=== PATIENT | female | born 1945 | race Asian ===

== ENCOUNTER 2020-10-15 14:57 | Emergency (ER) | payer MEDICARE, OTHER ==
[~2020-10-15] VITALS: Ht 160 cm; Wt 58.7 kg
[2020-10-15] MEDS ORDERED: CRES10TA PO (15:15)
[2020-10-15] MEDS ORDERED: LANTINJ4 SC (15:15)
[2020-10-15] MEDS ORDERED: NOVOINJ SC (15:15)
[2020-10-15] MEDS ORDERED: LISI-898 PO (15:15)
[2020-10-15] MEDS ORDERED: ISOVUE-370 76% 100ML VIAL As Ordered ONE (16:17)
--- NOTE | 2020-10-15 16:42 | REP ---
INDICATION: CVA. COMPARISON: No comparison chest x-ray TECHNIQUE: Way. FINDINGS: The lungs are symmetrically aerated. No definite infiltrate. Heart is mildly prominent in size. Pulmonary vasculature is cephalized. There are surgical clips in the right axillary soft tissues. The thoracic aorta is tortuous and calcific.. IMPRESSION: Mild cardiomegaly. Vascular cephalization. No evidence of pleural effusion or pulmonary edema. The. <Electronically signed by Aurelio Kahn > 10/15/20 [id number]
[2020-10-15 16:46] LABS: BASO % 0.3 % (0.0-1.0); EOS # 0.1 10^3/uL (0.0-0.5); EOS % 0.8 % (0.0-3.0); HEMATOCRIT 38.1 % (36.0-47.0); HEMOGLOBIN 12.4 g/dl (12.0-15.5); LYMPH # 1.9 10^3/uL (1.5-5.0); LYMPH % 29.6 % (24.0-44.0); MEAN CORPUSCULAR HEMOGLOBIN 29.5 pg (27.0-33.0); MEAN CORPUSCULAR HGB CONC 32.5 g/dl (32.0-36.5); MEAN CORPUSCULAR VOLUME 90.5 fl (80.0-96.0); MONO # 0.4 10^3/uL (0.0-0.8); MONO % 5.8 % (2.0-8.0); NEUTROPHILS # 4.1 10^3/uL (1.5-8.5); RED BLOOD COUNT 4.21 10^6/uL (4.00-5.40); WHITE BLOOD COUNT 6.5 10^3/uL (4.0-10.0)
[2020-10-15 16:58] LABS: INR 1.01; PROTHROMBIN TIME 13.5 SECONDS (12.5-14.3)
[2020-10-15 16:59] LABS: PARTIAL THROMBOPLASTIN TIME 40.5 SECONDS (24.2-38.5)
--- NOTE | 2020-10-15 17:01 | REP ---
INDICATION: eye vision deficit. COMPARISON: None. TECHNIQUE: Helical scanning is acquired. 5 mm axial images were reformatted. Coronal MPR images were generated. FINDINGS: Bone window settings demonstrate an intact bony calvarium. There is no evidence of skull fracture or incidental bony calvarial lesion. The visualized paranasal sinuses appear clear. No intraorbital abnormality is seen. On soft tissue window setting images; the lateral, third, and fourth ventricles are normal in size and position. Conroy-white differentiation pattern is normal above and below the tentorium. There are is no evidence of intracranial hemorrhage. No mass, edema, infarction, or midline shift is seen. No extra-axial fluid collection is appreciated. There is moderate vascular calcification at the skull base involving the distal internal carotid arteries. There is mild generalized volume loss. Mild small vessel changes are seen in the periventricular white matter of the right frontal lobe. There is punctate calcification in the basal ganglia on the right. IMPRESSION: Generalized volume loss and vascular calcification. Small vessel changes. No acute intracranial abnormality seen.. <Electronically signed by Aurelio Kahn > 10/15/20 [id number]
[2020-10-15 17:07] LABS: CK-MB VALUE MASS < 1.0 NG/ML (<3.6); CPK CREATINE PHOSPHOKINASE 73 U/L (26-192); MB/CK RELATIVE INDEX 1.37 (< OR =4); TROPONIN I < 0.02 NG/ML (< 0.10)
--- NOTE | 2020-10-15 17:07 | REP ---
INDICATION: CVA - Nursing interventions must not delay CT. COMPARISON: Comparison is made with today's CT brain study.. TECHNIQUE: CT contrast dose: 100 ml of intravenous Isovue 370. CT technique: Helical scanning is acquired. 2 mm axial images are reformatted. Maximal intensity projection and multiplanar re-formation images are generated along with 3-D surface rendered color imaging. FINDINGS: There is good opacification of the arterial tree. There is focal calcification in the distal vertebral artery on the right. The distal vertebral arteries are patent. Basilar artery is widely patent. Posterior cerebral and superior cerebellar vessels are unremarkable. The distal internal carotid arteries show fairly heavy vascular calcification. No high-grade stenosis is identified no occlusion. Middle and anterior cerebral arteries are patent bilaterally. No vessel cutoff is seen. The dural sinuses and straight sinus are patent. There is no evidence of robbins aneurysm or arteriovenous malformation. 3D surface rendered images show no additional finding. IMPRESSION: Fairly heavy vascular calcification in the carotid siphons bilaterally but no high-grade stenosis or occlusion seen. Otherwise unremarkable MR angiography. <Electronically signed by Aurelio Kahn > 10/15/20 [id number]
[2020-10-15 17:20] LABS: PLATELET COUNT, AUTOMATED 84 10^3/uL (150-450)
--- NOTE | 2020-10-15 17:35 | REPVR ---
PROCEDURE INFORMATION: Exam: CT Angiography Neck With Contrast Exam date and time: 10/15/2020 4:38 PM Age: 74 years old Clinical indication: Other: CVA; Additional info: CVA - nursing interventions must not delay CT TECHNIQUE: Imaging protocol: Computed tomography angiography of the neck with contrast. 3D rendering (Not supervised by radiologist): MIP and/or 3D reconstructed images were created by the technologist. Radiation optimization: All CT scans at this facility use at least one of these dose optimization techniques: automated exposure control; mA and/or kV adjustment per patient size (includes targeted exams where dose is matched to clinical indication); or iterative reconstruction. Contrast material: ISOVUE 370; Contrast volume: 100 ml; Contrast route: INTRAVENOUS (IV); COMPARISON: CR PORTABLE CHEST X-RAY 10/15/2020 4:31 PM FINDINGS: Right common carotid artery: No significant stenosis. No dissection or occlusion. Right internal carotid artery: Extracranial segment is patent with no stenosis. No dissection or occlusion. Minimal atherosclerosis of the proximal right internal carotid artery. Right external carotid artery: No occlusion or significant stenosis. Left common carotid artery: Artifact limits evaluation of the proximal left common carotid artery. No significant stenosis or occlusion of this vessel. Left internal carotid artery: Atherosclerosis and less than 50% stenosis of the proximal left internal carotid artery. Left external carotid artery: No occlusion or significant stenosis. Right vertebral artery: A dominant right vertebral artery is identified. Moderate stenosis at the origin of the right vertebral artery, with atherosclerosis. Left vertebral artery: Venous enhancement and artifact partially obscures the V1 segment of the left vertebral artery. Flow-limiting pathology cannot be excluded. No significant stenosis or occlusion of the remaining left vertebral artery. Right subclavian artery: The right subclavian artery is patent, as visualized. Left subclavian artery: Venous enhancement and artifact limit evaluation of the left subclavian artery. Paranasal sinuses: Mucosal thickening/effusions within the bilateral maxillary sinuses. Mucosal thickening of a right posterior ethmoid air cell. Thyroid: A 9 mm hypodense nodule is visualized within the left thyroid lobe. There is a subcentimeter calcification within the left thyroid lobe. Soft tissues: No significant soft tissue swelling. Bones/joints: Degenerative changes identified within the lower cervical spine. Lungs: Minimal nonspecific ground-glass density is seen within the left upper lobe of the lung. Atypical infection cannot be excluded. IMPRESSION: 1. Atherosclerosis and less than 50% stenosis of the proximal left internal carotid artery. 2. A dominant right vertebral artery is identified. Moderate stenosis at the origin of the right vertebral artery, with atherosclerosis. 3. Venous enhancement and artifact partially obscures the V1 segment of the left vertebral artery. Flow-limiting pathology cannot be excluded. No significant stenosis or occlusion of the remaining left vertebral artery. 4. A 9 mm hypodense nodule is visualized within the left thyroid lobe. 5. Minimal nonspecific ground-glass density is seen within the left upper lobe of the lung. Atypical infection cannot be excluded. Clinical correlation recommended. 6. Additional findings described above. COMMENTS: Consistent with the [employer]'s Incidental Findings Committee white paper (J Am Jerome Radiol 2015): In patients aged 35 years and older with an incidental thyroid nodule equal to or greater than 1.[address], MRI or extrathyroidal US, further evaluation with dedicated thyroid US is recommended for patients with normal life expectancy and without comorbidities. For smaller nodules without suspicious features, no further evaluation or follow up is recommended. REFERENCES: NASCET CRITERIA. The degree of internal carotid artery stenosis is based on NASCET criteria. Normal is no stenosis. Mild is less than 50% stenosis. Moderate is 50-69% stenosis. Severe is 70% to 99% stenosis. Total occlusion is no detectable patent lumen. Electronically signed by: Giancarlo Trevizo On 10/15/2020 17:35:18 PM
--- NOTE | 2020-10-15 21:10 | REPVR ---
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 COMPARISON: CT Head without contrast 10/15/2020 4:36 PM FINDINGS: Brain: No restricted diffusion within the brain to suggest an acute infarct. Small focus of encephalomalacia/gliosis involving the right insula, consistent with an old infarct. There are scattered foci of FLAIR hyperintensity within the cerebral white matter and julián. There is no mass effect or restricted diffusion associated with these foci. In a patient this age, this likely represents chronic small vessel ischemic disease. Tiny foci of magnetic susceptibility mineralization or hemosiderin within the bilateral globus pallidus. No cerebral edema. No intracranial mass effect. Cerebral ventricles: There is mild to moderate prominence of sulci, with mild prominence of ventricles, compatible with atrophy. Bones/joints: Unremarkable, as visualized. Paranasal sinuses: An air-fluid level is visualized within the right maxillary sinus, with mucosal thickening. Mucosal thickening/effusion within the left maxillary sinus. Minimal mucosal thickening of scattered ethmoid air cells. Mastoid air cells: No mastoid effusion. Orbital cavity: Unremarkable. Soft tissues: Unremarkable, as visualized. IMPRESSION: 1. No acute infarct. 2. Small focus of encephalomalacia/gliosis involving the right insula, consistent with an old infarct. 3. Mild white matter disease, likely representing chronic small vessel ischemic disease. 4. Mild to moderate atrophy. 5. Paranasal sinus disease. 6. If further evaluation is clinically indicated, a follow-up IAC MRI with/without contrast is suggested. Electronically signed by: Giancarlo Trevizo On 10/15/2020 21:10:06 PM
[2020-10-15] MEDS ORDERED: ASPIRIN 81 MG CHEW TABLET PO ONE (21:20)
[2020-10-15] MEDS ORDERED: ASPI81TA26 PO (21:22)
[2020-10-15 21:30] VITALS: BP 171/64
--- NOTE | 2020-10-16 04:30 | ECGEPIP ---
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
--- NOTE | 2020-10-16 08:55 | ED PDOC ---
Post-Departure Follow-Up certified letter sent regarding radiology reports Vicky Carney MD Oct 16, 2020 08:55
== END 2020-10-15 21:45 | disposition home or self-care (01) ==
LOC: M ED 14:57
DX: H49.22 Sixth [abducent] nerve palsy, left eye (principal); E10.9 Type 1 diabetes mellitus without complications; I10 Essential (primary) hypertension; R93.0 Abnormal findings on diagnostic imaging of skull and head, not elsewhere classified; I28.8 Other diseases of pulmonary vessels; Z79.82 Long term (current) use of aspirin; Z79.4 Long term (current) use of insulin; Z79.899 Other long term (current) drug therapy; Z88.8 Allergy status to other drugs, medicaments and biological substances
CPT/HCPCS: 70450; 70496; 70498; 70551; 71045; 80047; 82550; 82553; 84484; 85025; 85049; 85055; 85610; 85730; 86850; 86900; 86901; 93005; 93041; 94760; 99285; Q9967